=== PATIENT | female | born 1970 | race Caucasian/White ===

== ENCOUNTER 2017-03-31 01:01 | Emergency (ER) | payer OTHER ==
[2017-03-31] MEDS: KETOROLAC 60 MG INJ IM (03:23)
[2017-03-31] MEDS: HYDROCODONE/APAP (10/325) TAB PO (03:23)
== END 2017-03-31 05:00 | disposition home or self-care (01) ==
LOC: FTE 01:01
DX: M25.511 Pain in right shoulder (principal)
CPT/HCPCS: 73030; 73030-RT; 96372; 99284-25